=== PATIENT | female | born 1955 | race Caucasian/White ===

== ENCOUNTER → 2023-10-07 08:35 | Outpatient (REF) | payer MEDICARE, BC, SELFPAY | LOC: WDC 08:35 | PROVIDERS: ATTENDING PHYSICIAN Advanced Practice Midwife; FAMILY PHYSICIAN Family Medicine; REFERRING PHYSICIAN Internal Medicine Rheumatology | DX: M81.0 Age-related osteoporosis without current pathological fracture (principal); N63.10 Unspecified lump in the right breast, unspecified quadrant; N64.4 Mastodynia | CPT/HCPCS: 76642; 77062; 77066; 77080 ==

== ENCOUNTER → 2023-11-24 14:03 | Outpatient (REF) | payer MEDICARE, BC, SELFPAY | LOC: RAD 14:03 | PROVIDERS: ATTENDING PHYSICIAN Internal Medicine Cardiovascular Disease; FAMILY PHYSICIAN Family Medicine | DX: E78.5 Hyperlipidemia, unspecified (principal); M06.9 Rheumatoid arthritis, unspecified; Z82.49 Family history of ischemic heart disease and other diseases of the circulatory system | CPT/HCPCS: 71275; 74174; Q9967 ==

== ENCOUNTER → 2024-07-06 09:04 | Outpatient (REF) | payer MEDICARE, BC, SELFPAY | LOC: RAD 09:04 | PROVIDERS: ATTENDING PHYSICIAN Physician Assistant; FAMILY PHYSICIAN Family Medicine | DX: M25.561 Pain in right knee (principal); M25.571 Pain in right ankle and joints of right foot | CPT/HCPCS: 73564; 73610 ==

== ENCOUNTER → 2024-10-12 14:37 | Outpatient (REF) | payer MEDICARE, BC, SELFPAY | LOC: WDC 14:37 | PROVIDERS: ATTENDING PHYSICIAN Advanced Practice Midwife; FAMILY PHYSICIAN Family Medicine | DX: Z12.31 Encounter for screening mammogram for malignant neoplasm of breast (principal) | CPT/HCPCS: 77063; 77067 ==

== ENCOUNTER 2025-01-03 23:08 | Inpatient (IN) | payer MEDICARE, BC, SELFPAY ==
[2025-01-03] VITALS (9 sets, daily range): BP systolic 105–134; BP diastolic 61–106; BMI 36.0
[2025-01-03 14:41] LABS: % Basophils 0.2 % (0-2); % Eosinophils 0.4 % (0-6); % Immature Granulocytes 0.5 % (0-0.5); % Lymphocytes 8.5 % (20.5-51.1); % Monocytes 9.2 % (1.7-9.3); % Neutrophils 81.2 % (42.2-75.2); Absolute Eosinophils 0.1 10^3/uL (0-0.7); Absolute Immature Granulocytes 0.1 10^3/uL (0-0.05); Absolute Lymphocytes 1.3 10^3/uL (1.2-3.4); Absolute Monocytes 1.4 10^3/uL (0.1-0.6); Absolute Neutrophils 11.9 10^3/uL (1.4-6.5); Hematocrit 42.2 % (37.0-47.0); Mean Corp Hgb Conc. 33.2 g/dL (33.0-37.0); Mean Corpuscular Hgb 31.5 pg (27.0-31.0); Mean Platelet Volume 9.9 fL (7.4-10.4); Nucleated Red Blood Cells % 0 %; Platelet Count 298 10^3/uL (130-400); Red Blood Cell Count 4.44 10^6/uL (4.20-5.40); Red Cell Dist. Width 14.1 % (11.5-14.5); White Blood Cell Count 14.7 10^3/uL (4.8-10.8)
[2025-01-03 15:02] LABS: ALT (SGPT) 40 U/L (0-35); AST (SGOT) 36 U/L (14-36); Albumin 4.7 g/dl (3.5-5.0); Alkaline Phosphatase 85 U/L (38-126); Blood Urea Nitrogen 11 mg/dl (7-17); Calcium 9.2 mg/dl (8.4-10.2); Carbon Dioxide 28 mmol/L (22-30); Chloride 107 mmol/L (98-107); Glucose 112 mg/dl (70-99); Potassium 4.1 mmol/L (3.5-5.1); Sodium 141 mmol/L (135-145); Total Bilirubin 0.9 mg/dl (0.2-1.3); eGFR > 60.00
[2025-01-03 15:03] LABS: Urine Albumin 2+ (Neg - Trace); Urine Bilirubin Negative (Negative); Urine Character Clear (Clear); Urine Color Yellow; Urine Glucose Negative (Negative); Urine Ketone 2+ (Negative); Urine Leukocyte 1+ (Negative); Urine Nitrite Negative (Negative); Urine Occult Blood 2+ (Negative); Urine Urobilinogen Negative (Neg - 1+)
[2025-01-03 15:08] LABS: COVID-19 Antigen Negative (Negative)
[2025-01-03 15:18] LABS: Urine Bacteria Moderate (Negative)
[2025-01-03 15:19] LABS: Urine White Cell 40-50 /HPF (0-5)
[2025-01-03 15:20] LABS: Urine Urothelial Cell 0-2 /LPF (FEW)
[2025-01-03 15:35] LABS: Lipase 75 U/L (23-300)
--- NOTE | 2025-01-03 15:58 | ED.GENMED ---
History of Present Illness
General
Chief Complaint: Abdominal Symptoms
Source: patient
Exam Limitations: none
Time Seen by Provider: 01/03/25 15:41
History of Present Illness
History of Present Illness:
Patient started days ago with some diarrhea nausea vomiting. Followed by back pain. Followed by urinary symptoms. Followed by fever and chills. All of the symptoms have persisted the last 2 to 3 days. Last Tylenol late morning.
Past History
Past History
ED Past Medical History: Asthma, Hypercholesterolemia and Other (RA, Migraines, Sleep apnea)
ED Past Surgical History: None, Gynecological (right breast lumpectomy, D&C), Orthopedic (Right rotator cuff, Bilateral bunionectomy, Thoracic Laminectomy, Spinal stimulator) and Urological (Urtheral stents)
Social History
Tobacco: Former smoker
Alcohol: Occasional
Personal:
Living: with family
Employment: Retired
Review of Systems
Review of Systems
All Other Systems: Not applicable
Constitutional: Reports fever and chills
Respiratory: Reports no symptoms
Cardiac: Reports no symptoms
Phy Exam
Physical Exam
Physical Exam:
GENERAL: Alert and oriented. Appears mildly uncomfortable
EYE: Orbits normal.
NECK: Supple, no significant adenopathy.
ENT: Pharynx without erythema
CARDIAC: Regular rate and rhythm without any obvious murmurs.
LUNGS: Clear breath sounds,normal
ABDOMEN: Soft, mild nonlocalizing abdominal tenderness. No rebound or guarding no mass or hernia. Mild CVA tenderness more in the left
NEUROLOGICAL: Alert and oriented , grossly non-focal
SKIN: Warm and dry, no rash or lesion, no discoloration, skin intact.
MUSCULOSKELETAL: No edema,no deformity.Good color
PSYCH: Normal and appropriate interaction.
Sepsis
Sepsis Screening
Sepsis Assessment: Sepsis
Sepsis Screen
Sepsis Screen: Sepsis
Date: 01/03/25
Time: 19:00
Course
Orders/Labs/Results
Orders:
Orders
01/03/25 14:13
COVID-19 Antigen Urgent
Source: Nasal Swab
Complete Blood Count/With Diff Urgent
Comprehensive Metabolic Panel Urgent
Lipase Urgent
Urinalysis Reflex To Culture Urgent
Date Specimen was Collected: 01/03/25
Time Specimen was Collected: 13:47
Urine Microscopic Reflex Cult Urgent
Influenza A+B Rapid Molecular Urgent
PATRICIA Source: Nasal Swab
Specimen Description:
Date Specimen was Collected: 01/03/25
Time Specimen was Collected: 13:47
Urine Culture Urgent
PATRICIA Source: U
Specimen Description:
Date Specimen was Collected: 01/03/25
Time Specimen was Collected: 13:47
01/03/25 15:55
Cardiac Monitoring- Treatment ONCE
IV Insert/Care/Rem.- Treatment PRN
0.9% Sodium Chloride 1000 ml [Nss] 1,000 ml IV BOLUS
Acetaminophen [Tylenol] 1,000 mg PO NOW STA
Cefepime HCl [Maxipime] 2,000 mg IV NOW STA
Pulse Ox/cont/shift [RESP] Urgent
Quantity: 1
01/03/25 15:56
STOOL [C difficile Antigen & Toxins] Urgent
PATRICIA Source: Feces/Stool
Specimen Description:
Stool Culture Urgent
PATRICIA Source: Feces/Stool
Specimen Description:
01/03/25 15:57
CT Abd/Pel (IV only)-DH only Urgent
Comment:
Reason For Exam: Abdominal pain diarrhea/pyelonephritis
01/03/25 16:21
Lactic Acid Q4H
Comment: CANCEL 2nd LACTIC ACID IF 1st LACTIC ACID IS LESS THAN 2
Blood Culture Q30M
PATRICIA Source: Blood/Venous
Specimen Description:
01/03/25 16:25
Blood Culture Q30M
PATRICIA Source: Blood/Venous
Specimen Description:
01/03/25 16:50
Ketorolac [Toradol] 15 mg IV NOW STA
Ondansetron Injectable [Zofran] 4 mg IV NOW STA
01/03/25 16:52
CXR Port [CR Chest Portable - 1 View] Urgent
Comment:
Reason For Exam: fever/hypoxia
Reason Study Needs to be Portable: Patient Unstable
01/03/25 17:07
O2 Therapy [RESP] Stat
Titrate/Wean O2 to maintain O2 sat greater than (%): 94
01/03/25 18:11
Doxycycline Hyclate [Vibramycin] 100 mg 0.9% Sodium Chloride 250 ml [Nss] 250 ml IV NOW
01/03/25 20:00
Lactic Acid Q4H
Comment: CANCEL 2nd LACTIC ACID IF 1st LACTIC ACID IS LESS THAN 2
Abnormal Lab Results
01/03/25
14:13
WBC 14.7 H 10^3/uL
(4.8-10.8)
MCH 31.5 H pg
(27.0-31.0)
Abs Immat Gran (auto) 0.1 H 10^3/uL
(0-0.05)
Absolute Neuts (auto) 11.9 H 10^3/uL
(1.4-6.5)
Absolute Monos (auto) 1.4 H 10^3/uL
(0.1-0.6)
Neutrophils % 81.2 H %
(42.2-75.2)
Lymphocytes % 8.5 L %
(20.5-51.1)
Glucose 112 H mg/dl
(70-99)
ALT 40 H U/L
(0-35)
Urine Ketones 2+ A
(Negative)
Ur Occult Blood Reflex 2+ A
(Negative)
Leukocyte Esterase Rfl 1+ A
(Negative)
Urine RBC 3-6 A /HPF
(0-2)
Urine WBC (Reflex) 40-50 A /HPF
(0-5)
Urine Bacteria (Reflex) Moderate A
(Negative)
Urine Albumin (Reflex) 2+ A
(Neg - Trace)
01/03/25 14:13
01/03/25 14:13
Vital Signs
Initial and Last Documented VS:
Initial Vital Signs
Temp Pulse Resp BP Pulse Ox
99.6 F 105 18 132/93 95
01/03/25 13:42 01/03/25 13:42 01/03/25 13:42 01/03/25 13:42 01/03/25 13:42
Last Documented Vital Signs
Temp Pulse Resp BP Pulse Ox
99.6 F 99 17 134/106 94
01/03/25 13:42 01/03/25 17:00 01/03/25 17:00 01/03/25 18:19 01/03/25 18:18
MDM/Problems Addressed
Differential Diagnosis Includes:
Patient with fever white count immunosuppressed. Clinically and by labs looks like a pyelonephritis. Awaiting CT scan. Fluids antibiotics. Patient will require admission
*Pulse Oximetry
Patient hypoxic: no
*Critical Care Note
Total Time (30-74mins, 75-104mins- exclusive of procedures): 40
Data Reviewed
Review of Other/Old Records Reveals: Labs, Records and Testing
Update Note
Update Note:
No acute findings on CT. Copy of report given to patient for follow-up recheck multiple times. Feels better. Lactic acid within normal limits. Pyelonephritis/pneumonia.
ED Attending Note
-
Portions of this chart may have been created with voice recognition software.� Occasional wrong word or��sound alike� substitutions may have occurred due to the inherent limitations of voice recognition software.
Discharge Plan
Departure
Patient Disposition: Admit
Date of Disposition: 01/03/25
Time of Disposition: 17:54
Presentation/result/management discussed w/ accepting MD/DO: Hospitalist
Discharge Problem:
Pyelonephritis, Left lower lobe pneumonia, Immunocompromised
Prescriptions:
No Action
rabeprazole [AcipHex] 20 MG tablet,delayed release (DR/EC)
20 mg PO BID
Theragen Tablet
1 tab PO DAILY Qty: 0
montelukast 10 MG tablet
10 mg PO DAILY
ezetimibe 10 MG tablet
10 mg PO DAILY
Excedrin Tension Headache 500-65 mg Tablet
2 tab PO DAILYPRN PRN (Reason: migraine)
escitalopram oxalate [Lexapro] 10 mg Tablet
10 mg PO DAILY
methotrexate sodium 2.5 mg Tablet
20 mg PO MO
folic acid 1 mg Tablet
1 mg PO DAILY
gabapentin 600 mg Tablet
600 mg PO TID
acetaminophen [Tylenol] 325 mg Tablet
650 mg PO Q6HPRN PRN (Reason: mild pain)
rizatriptan [Maxalt] 10 mg Tablet
0 mg PO .COMPLEX
Rx Instructions:
take 1 tab at onset of headache; if no relief may repeat 1 tab after at least 2 hrs; max = 3 tabs/24 hr
fluticasone propion-salmeterol [Wixela Inhub] 500-50 mcg/dose Blister With Device
2 inh INHALATION R BID
ihnhtyrfih-asvuwlvfofdct-xihu 50-325-40 mg tablet
1 tab PO Q4HPRN PRN (Reason: migraines)
rutin 50 mg Tablet
50 mg PO DAILY
ascorbic acid (vitamin C) [Vitamin C] 500 mg Tablet
500 mg PO DAILY
infliximab [Remicade] 100 mg Recon Soln
0 mg IV MONTHLY
icosapent ethyl [Vascepa] 1 gram Capsule
2 g PO BID
turmeric 400 mg Capsule
400 mg PO DAILY
Nexletol 180 mg Tablet
180 mg PO DAILY
elderberry fruit 350 mg Capsule
1,250 mg PO BID
Referrals:
Dung Garcia, DO [Family Provider] -
Interventions
Interventions:
*Risk Screen - Suicide Last Done: 01/03/25 13:42
*General Assessment Last Done: 01/03/25 13:42
*Neglect/Abuse Screening Last Done: 01/03/25 16:40
*ED- Fall Risk Assessment Last Done: 01/03/25 16:23
*ED COVID-19 Vaccine History Last Done: 01/03/25 16:23
HB-Kfjwec-Dqqxvoekhr Assessment Last Done: 01/03/25 16:23
Discharge Date and Time
Print Language: LITHUANIAN
[2025-01-03] MEDS: TYLENOL 1000 MG PO (16:05)
[2025-01-03] MEDS: MAXIPIME 2000 MG IV (16:22)
[2025-01-03] MEDS: NSS 1000 IV (16:22)
[2025-01-03] MEDS: ZOFRAN 4 MG IV (16:55)
[2025-01-03] MEDS: TORADOL 15 MG IV (16:55)
[2025-01-03 16:58] LABS: Lactic Acid 1.1 mmol/L (0.7-2.0)
[2025-01-03] MEDS: VIBRAMYCIN 260 MG IV (18:46)
--- NOTE | 2025-01-03 18:46 | HPS.HSE ---
Family Physician
-
Family Physician: Dung Garcia
Chief Complaint
-
nausea vomiting followed by back pain.
History of Present Illness
HPI
69F HX Asthma, hypercholesterolemia , RA, Migraines, Sleep apnea seen at ER:
- pw some diarrhea nausea vomiting followed by back pain.
- POS frequency and dysuria for a coupe of days plus fever and chills.
- Lt renal angle tenderness
- Denied cough and sputum production
- All of the symptoms have persisted the last 2 to 3 days.
- Last Tylenol late morning.
Medical History
Past Medical History
Past Medical History: Reports Asthma, Cancer (cervical-conization), GERD, Hypercholesterolemia and Other (RA on Remicade and MTX, Migraines, Sleep apnea)
Past Surgical History: Reports Gynocological (Cervical conization), Orthopedic (L4-5 Discectomy, right rotator cuff repair, left hand carpel tunnel release, bunionectromy) and Other (Right breast lumpectomy, right eye cataract, right ganglion cyst
removal)
Social History
Tobacco: Former Smoker
Alcohol: Occasional
Personal:
Living: With Family
Employment: Retired
Family History
Family History: Not pertinent
Allergies / Home Medications
Allergies reflects when Allergies were last updated in [facility].
Home Medications with original date entered in [facility]
Allergy/Medication List:
Allergies
Allergy/AdvReac Type Severity Reaction Status Date / Time
aspirin Allergy GI bleed Verified 06/16/22 19:12
Beta-Blockers Allergy Asthma, Verified 06/16/22 19:12
(Beta-Adrenergic Bloc HYPOTENSION
codeine [Codeine] Allergy hypotension Verified 06/16/22 19:12
esomeprazole magnesium Allergy hives/rash Verified 06/16/22 19:12
[From Nexium]
famotidine [From Pepcid] Allergy hives/rash Verified 06/16/22 19:12
hydromorphone HCl Allergy itching/ifrah Verified 06/16/22 19:12
[From Dilaudid] minda
ibuprofen Allergy ITCHING, Verified 06/16/22 19:12
MIGRAINE
levetiracetam [From Keppra] Allergy Rash Verified 06/16/22 19:12
naproxen Allergy ITCHING, Verified 06/16/22 19:12
MIGRAINE
NSAIDS (Non-Steroidal Allergy Itching, Verified 06/16/22 19:12
Anti-Inflamma migraine
H/A
Jijoscd-CPG-AkO Reductase Allergy severe Verified 06/16/22 19:12
Inhibitor muscle pain
[Xdlhlye-Bbe-Ghw Reductase
Inhibitor]
theophylline anhydrous Allergy HIVES, Verified 06/16/22 19:12
[From Juanito-Dur] RASH,
respiratory
distress
statin Allergy Unknown Uncoded 06/16/22 19:12
theodur Allergy Hives, Uncoded 06/16/22 19:12
rash,
respiratory
distress
Home Medications
Nifedipine 40 mg PO QHS for migraine prophylaxis
MTX 2.5 mg (8 tabs) on Mondays
Folic Acid 1 tab daily
Remicade every 6 weeks, due this week.
fluticasone 250 mcg-salmeterol 50 mcg/dose blistr powdr for inhalation (Advair Diskus) 1 puff inhalation BID 11/22/11
rizatriptan 10 mg tablet (Maxalt) 20 mg PO PRN PRN migraines 11/22/11
albuterol sulfate 90 mcg/actuation aerosol inhaler 2 puff inhalation PRN PRN asthma 04/21/14
Review of Systems
-
Constitutional: Reports No Symptoms
EENT: Reports No Symptoms
Respiratory: Reports No Symptoms
Cardiac: Reports No Symptoms
Abdomen/GI: Reports See HPI, Nausea, Vomiting and Diarrhea
: Reports No Symptoms
Musculoskeletal: Reports See HPI
Skin: Reports No Symptoms
Neurological: Reports No Symptoms
Endocrine: Reports No Symptoms
Hematologic/Lymphatic: Reports No Symptoms
Psych: Reports No Symptoms
Physical Exam
Vital Signs
Vital Signs
Temp Pulse Resp BP Pulse Ox
99.6 F 99 17 134/106 94
01/03/25 13:42 01/03/25 17:00 01/03/25 17:00 01/03/25 18:19 01/03/25 18:18
Physical Exam
General: Well Developed, Well Nourished, No Apparent Distress and Obese (BMI 36 )
HEENT: NormoCephalic, Moist mucous membranes and Atraumatic
Respiratory: Clear
Cardiac: S1/S2 and Regular Rhythm; No Murmur or Rub
GI: Soft, Non Tender, Non Distended and Normal Bowel Sounds; No Organomegaly
Rectal: Deferred by Provider
Genito-urinary: Costovertebral angle tend (Lt CVA tenderness )
Musculoskeletal: No Clubbing, No Cyanosis and No Edema
Skin: No Rash
Neuro: Nonfocal/grossly intact
Psych: Calm
Laboratory Results
-
01/03/25 14:13
01/03/25 14:13
Laboratory Results
Lactic Acid 1.1 mmol/L (0.7-2.0) 01/03/25 16:21
Total Bilirubin 0.9 mg/dl (0.2-1.3) 01/03/25 14:13
AST 36 U/L (14-36) 01/03/25 14:13
ALT 40 U/L (0-35) H 01/03/25 14:13
Alkaline Phosphatase 85 U/L (38-126) 01/03/25 14:13
Lipase 75 U/L (23-300) 01/03/25 14:13
Data Reviewed
-
Diagnostic Radiology: Report Reviewed by me
CT Scan: Report Reviewed by me
Lab Data: Labs Reviewed by me
Old Records: Reviewed
Impression/Plan
-
Vital Signs
Temp Pulse Resp BP Pulse Ox
99.6 F 99 17 134/106 94
01/03/25 13:42 01/03/25 17:00 01/03/25 17:00 01/03/25 18:19 01/03/25 18:18
Abnormal Lab Results
01/03/25
14:13
WBC 14.7 H
MCH 31.5 H
Abs Immat Gran (auto) 0.1 H
Absolute Neuts (auto) 11.9 H
Absolute Monos (auto) 1.4 H
Neutrophils % 81.2 H
Lymphocytes % 8.5 L
Glucose 112 H
ALT 40 H
Urine Ketones 2+ A
Ur Occult Blood Reflex 2+ A
Leukocyte Esterase Rfl 1+ A
Urine RBC 3-6 A
Urine WBC (Reflex) 40-50 A
Urine Bacteria (Reflex) Moderate A
Urine Albumin (Reflex) 2+ A
UCx sent
BCx sent
CXR
Small left lower lobe infiltrate.
CT Abd/Pel (IV only)-DH only
- The colon is collapsed which limits assessment of intestinal wall thickening.
There is the suggestion of mild colonic wall thickening involving the ascending colon, transverse colon, and descending colon. Cannot exclude mild nonspecific colitis.
No associated significant pericolonic inflammatory soft tissue thickening.
No pneumatosis.
- There is a small amount of fluid within nondistended loops of small bowel.
- Small amount of liquid feces in the cecum.
- No Obstructive uropathy.
- Fatty infiltration of liver. Stable hepatic cysts.
- Stable small pancreatic low-attenuation/cystic structure in the region of the pancreatic body measuring 10 mm.
Recommend follow-up in 2 years.
Last hospitalist admission: 06/18/2022 - 06/20/2022
DC Dxs
1. Acute hypoxic respiratory insufficiency No O2 needs at home.
2. Acute asthma exacerbation
3. History of rheumatoid arthritis on Remicade and methotrexate plus folic acid in immunosuppressed patient.
4. History of migraines on nifedipine.
5. Gastroesophageal reflux disease on PPI.
ASSESSMENT & PLAN
Pending Rx reconciliation
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
- Hold MTX for now with acute infective process
Symptomatic UTI complicated with clinical Acute Lt PN
Lt CVA tenderness
Significant pyuria
No Obstructive uropathy.
- FU BCx and UCx
- Empiric IV CFP
- IV NS
- Tylenol PRN
- IV Toradol PRN
Small left lower lobe infiltrate
No clinical PNA
- Hold off PO Doxy for now
HX RA on Remicade and MTX (with folic acid)
- c/w [employer] Gabapentin
- Hold MTX while acute infective process
HX Asthma
- has HFA and Advair
- she is followed OP by [employer] Dr. Reji Aldana (f/u in 4-6 weeks)
HX Migraines
- on Maxalt
HX GERD on PPI
Depression
- stable on Escitalopram
HLD
- on Ezetimibe
Class II Obesity
BMI 36
JASIEL
- not use CPAP at home
DVT ppx: LMWH
Code: Full
IP MS
[2025-01-04] MEDS: MAXIPIME 1000 MG IV ×3 (00:36→16:37)
[2025-01-04] MEDS: STERILE WATER FOR INJECTION 10 ML IV ×3 (00:42→16:36)
[2025-01-04] MEDS: NSS IV (00:50)
[2025-01-04] MEDS: MAXALT MLT (ORALLY DISINTEGRATING) 10 MG PO ×3 (04:58→21:11)
[2025-01-04 05:03] VITALS: BP 130/64
[2025-01-04] MEDS: NSS 1000 IV ×2 (05:08→20:27)
[2025-01-04] MEDS: ZOFRAN 4 MG IV (05:12)
[2025-01-04 06:22] LABS: Hematocrit 38.1 % (37.0-47.0); Hemoglobin 12.7 g/dL (12.0-16.0); Mean Corp Hgb Conc. 33.3 g/dL (33.0-37.0); Mean Corpuscular Hgb 31.4 pg (27.0-31.0); Mean Corpuscular Volume 94.3 fL (81.0-99.0); Mean Platelet Volume 10.3 fL (7.4-10.4); Platelet Count 274 10^3/uL (130-400); Red Blood Cell Count 4.04 10^6/uL (4.20-5.40); Red Cell Dist. Width 14.1 % (11.5-14.5)
[2025-01-04 06:48] LABS: Blood Urea Nitrogen 14 mg/dl (7-17); Calcium 8.9 mg/dl (8.4-10.2); Carbon Dioxide 25 mmol/L (22-30); Chloride 112 mmol/L (98-107); Estimated Creatinine Clearance 82 ml/min; Glucose 94 mg/dl (70-99); Potassium 4.2 mmol/L (3.5-5.1); Sodium 142 mmol/L (135-145); eGFR > 60.00
[2025-01-04 07:19] VITALS: BP 126/86
[2025-01-04] MEDS: TYLENOL 650 MG PO ×2 (08:03→16:43)
[2025-01-04] MEDS: NEURONTIN 600 MG PO ×3 (08:17→22:20)
[2025-01-04] MEDS: SINGULAIR 10 MG PO (08:18)
[2025-01-04] MEDS: ZETIA 10 MG PO (08:19)
[2025-01-04] MEDS: LEXAPRO 10 MG PO (08:19)
--- NOTE | 2025-01-04 08:19 | W.PN.HOSP.TC ---
Today's Communication/Plan
-
see plan
Assessment / Plan
Assessment / Plan
Gen: NAD, AAOx3.
Eyes: EOMI, PERRLA, no scleral icterus.
Neck: supple.
CV: RRR, +S1/S2, no m/r/g.
Resp: CTAB, no rales, wheezes, or rhonchi.
Abd: +BS, soft, mild, diffuse, TTP, ND
Skin: No rashes.
Neuro: CN 2-12 intact, non-focal.
Psych: Normal mood and affect.
CXR: Small left lower lobe infiltrate.
CT A/P (IV only): The colon is collapsed which limits assessment of intestinal wall thickening. There is the suggestion of mild colonic wall thickening involving the ascending colon, transverse colon, and descending colon. Cannot exclude mild
nonspecific colitis. No associated significant pericolonic inflammatory soft tissue thickening. No pneumatosis. There is a small amount of fluid within nondistended loops of small bowel. Small amount of liquid feces in the cecum. No Obstructive
uropathy. Fatty infiltration of liver. Stable hepatic cysts. Stable small pancreatic low-attenuation/cystic structure in the region of the pancreatic body measuring 10 mm. Recommend follow-up in 2 years.
Sepsis (POA) due to symptomatic UTI:
-complicated with clinical acute L pyelonephritis (L CVA TTP)
-immunosuppressed host being on Remicade and methotrexate for RA (holding MTX)
-cont Cefepime
-cont IVFs
-follow UCx/BCxs
-c/s ID
Other problems:
Small left lower lobe infiltrate: No clinical PNA
RA: on Remicade and MTX (with folic acid), holding MTX with UTI, cont Neurontin
Asthma: Cont Advair/Singulair
Migraines: Maxalt PRN
GERD: cont PPI
Depression: cont Lexapro
HLD: cont Zetiz
Obesity due to excess calories
JASIEL, does not use CPAP at home
FULL/Lovenox
Anticipated Discharge: 24 - 48 hours
Subjective/Interval History
-
Date of Service: January 04, 2025
c/o nausea and L flank sharp pain
Objective Data
-
Labs:
Laboratory Results
01/04/25
05:08
WBC 12.0 H
Hgb 12.7
Hct 38.1
Plt Count 274
Sodium 142
Potassium 4.2
Chloride 112 H
Carbon Dioxide 25
BUN 14
Creatinine 0.7
Glucose 94
Calcium 8.9
Vital Signs:
Vital Signs
Temp Pulse Resp BP Pulse Ox
99.1 F 93 16 126/86 94
01/04/25 07:19 01/04/25 07:19 01/04/25 07:19 01/04/25 07:19 01/03/25 23:45
[2025-01-04] MEDS: FOLVITE 1 MG PO (08:20)
[2025-01-04] MEDS: ADVAIR HFA 230/21 MCG INHALER INH ×2 (08:30→08:31)
--- NOTE | 2025-01-04 08:45 | EDRN ---
Serafin Benito in to see pt.
[2025-01-04 11:37] VITALS: BP 126/71
[2025-01-04] MEDS: TORADOL 10 MG IV ×2 (13:00→20:42)
--- NOTE | 2025-01-04 16:29 | CON.ID ---
Consultation
-
Date/Time Consultation Requested: January 04, 2025 0842
Date/Time Consultation Performed: January 04, 2025 1630
Requesting Provider: Dr. Hudson Benito
Performing Provider: Dr. Joanie Arias
Reason for Consultation: Left pyelonephritis
Chief Complaint / Past History
Chief Complaint
Left flank pain and burning with urination
History of Present Illness
69-year-old female with history of rheumatoid arthritis on methotrexate and Remicade who presented to the hospital January 03 due to malaise, left back pain. She reports that she for started with nausea vomiting and then explosive diarrhea. After the
incident she then started with dysuria, urinary frequency and left flank pain. Positive chills and subjective fever. In the ER white count 14.7. Urine analysis 1+ leukocyte esterase, 40-50 white blood cells, urine culture E. coli. CT of the
abdomen pelvis no obstructive uropathy; there is suggestive of mild colonic wall thickening ascending, transverse and descending colon. She is currently on cefepime. The diarrhea has resolved. No history of frequent UTI.
Past History
Additional Past Medical History:
Rheumatoid arthritis on MTX and Remicade
Migraine headaches
Sleep apnea
HLD
Asthma
Nephrolithiasis
L4-5 discectomy
Right rotator cuff repair
Bunionectomy
Right breast lumpectomy
Cervical conization
Allergy History:
aspirin Allergy (Verified 01/03/25 13:42)
GI bleed
Beta-Blockers (Beta-Adrenergic Bloc Allergy (Verified 01/03/25 13:42)
Asthma, HYPOTENSION
codeine [Codeine] Allergy (Verified 01/03/25 13:42)
hypotension
esomeprazole magnesium [From Nexium] Allergy (Verified 01/03/25 13:42)
hives/rash
famotidine [From Pepcid] Allergy (Verified 01/03/25 13:42)
hives/rash
hydromorphone HCl [From Dilaudid] Allergy (Verified 01/03/25 13:42)
itching/migraine
ibuprofen Allergy (Verified 01/03/25 13:42)
ITCHING, MIGRAINE
levetiracetam [From Keppra] Allergy (Verified 01/03/25 13:42)
Rash
naproxen Allergy (Verified 01/03/25 13:42)
ITCHING, MIGRAINE
NSAIDS (Non-Steroidal Anti-Inflamma Allergy (Verified 01/03/25 13:42)
Itching, migraine H/A
Hkjqudj-YFR-WvL Reductase Inhibitor [Newptko-Wcy-Hru Reductase Inhibitor] Allergy (Verified 01/03/25 13:42)
severe muscle pain
theophylline anhydrous [From Juanito-Dur] Allergy (Verified 01/03/25 13:42)
HIVES, RASH, respiratory distress
EYE DROPS WITH PRESERVATIVES Allergy (Uncoded 01/03/25 13:42)
Unknown
Medications Reviewed: Yes
Current Antibiotics:
Cefepime 1g IV q8
Social History
Tobacco: Non-Smoker
Alcohol: None
Drug: None
Personal:
Living: With Family
Family History
Family History: Not Pertinent
Review of Systems
Review of Systems
General: Fever, Chills and Change in Appetite
HEENT: Negative Sinus Problems or Headache
Cardiovascular: Negative Chest Pain or Dyspnea
Respiratory: Negative Dyspnea or Cough
Genital / Urological: Negative Dysuria or Flank Pain
Endocrine: Weakness
Neurological: Negative Dizziness
All systems: All other systems were reviewed and were negative
Vital Signs
Temp Pulse Resp BP Pulse Ox
99.1 F 94 16 126/71 94
01/04/25 07:19 01/04/25 11:37 01/04/25 11:37 01/04/25 11:37 01/04/25 11:37
Physical Exam
Physical Exam
Constitutional: No Acute Distress and Comfortable
Eyes: No Conjunctival Hemorrhage and Sclera Anicteric
Cardiovascular: Regular Rate and S1/S2
Pulmonary: Clear
Gastrointestinal: Soft, Non Tender, Non Distended and Normal Bowel Sounds
Genito-Urinary: CVA Tenderness (left); Negative Suprapubic Tenderness
Neurological: AO x 3
Lab / Diagnostic Study Results
01/04/25 05:08
01/04/25 05:08
Abs Immat Gran (auto) 0.1 10^3/uL (0-0.05) H 01/03/25 14:13
Absolute Neuts (auto) 11.9 10^3/uL (1.4-6.5) H 01/03/25 14:13
Absolute Lymphs (auto) 1.3 10^3/uL (1.2-3.4) 01/03/25 14:13
Absolute Monos (auto) 1.4 10^3/uL (0.1-0.6) H 01/03/25 14:13
Absolute Basos (auto) 0.0 10^3/uL (0-0.2) 01/03/25 14:13
Immature Gran % 0.5 % (0-0.5) 01/03/25 14:13
Neutrophils % 81.2 % (42.2-75.2) H 01/03/25 14:13
Lymphocytes % 8.5 % (20.5-51.1) L 01/03/25 14:13
Monocytes % 9.2 % (1.7-9.3) 01/03/25 14:13
Eosinophils % 0.4 % (0-6) 01/03/25 14:13
Basophils % 0.2 % (0-2) 01/03/25 14:13
Lactic Acid Cancelled 01/03/25 20:00
Ur Squamous Epith Cells 3-5 /LPF (Few) 01/03/25 14:13
Microbiology Results
Micro:
01/03/25 14:13 Urine Culture - Preliminary
Urine Escherichia coli
01/04/25 05:01 Salmonella/Shigella Culture - Pending
Feces/Stool Campylobacter Culture - Pending
Shiga Toxin Test - Pending
01/03/25 16:25 Blood Culture - Pending
Blood/Venous
01/03/25 16:21 Blood Culture - Pending
Blood/Venous
01/03/25 14:13 Influenza Types A & B (OPAL) - Final
Nasal Swab Negative for Influenza A & B, NAAT
Negative results must be combined with clinical observations
and patient history.
Nucleic Acid Amplification test (NAAT)performed on the
[employer] platform.
01/03/15 CT a/p: The colon is collapsed which limits assessment of intestinal wall thickening. There is the suggestion of mild colonic wall thickening involving the ascending colon, transverse colon, and descending colon. Cannot exclude mild
nonspecific colitis. No associated significant pericolonic inflammatory soft tissue thickening. No pneumatosis. There is a small amount of fluid within nondistended loops of small bowel. Small amount of liquid feces in the cecum. No Obstructive
uropathy. Fatty infiltration of liver. Stable hepatic cysts. Stable small pancreatic low-attenuation/cystic structure in the region of the pancreatic body measuring 10 mm. Recommend follow-up in 2 years.
01/03/25 CXR: Small left lower lobe infiltrate.
Assessment / Plan
# Complicated UTI
# Leukocytosis
# Recent gastroenteritis - resolved
- Ucx E. coli
- Follow blood cx's
- Narrow cefepime to ceftriaxone.
- Follow temps/wbc
--- NOTE | 2025-01-04 16:46 | EDRN ---
Pt medicated for headache 02/01 at this time w/ [address]
[2025-01-04 17:38] VITALS: BP 129/66
[2025-01-04 17:43] VITALS: BMI 34.9
[2025-01-04] MEDS: ADVAIR HFA 230/21 MCG INHALER 2 PUFF INH (19:45)
[2025-01-04] MEDS: STERILE WATER FOR INJECTION 20 ML IV (20:21)
[2025-01-04] MEDS: ROCEPHIN 2000 MG IV (20:21)
[2025-01-04 23:14] VITALS: BP 117/74
[2025-01-05 05:12] VITALS: BMI 35.4
[2025-01-05] MEDS: MAXALT MLT (ORALLY DISINTEGRATING) 10 MG PO (05:55)
[2025-01-05] MEDS: LEXAPRO 10 MG PO (07:24)
[2025-01-05] MEDS: NEURONTIN 600 MG PO ×3 (07:24→21:26)
[2025-01-05] MEDS: SINGULAIR 10 MG PO (07:24)
[2025-01-05] MEDS: FOLVITE 1 MG PO (07:24)
[2025-01-05] MEDS: ZETIA 10 MG PO (07:24)
[2025-01-05] MEDS: ADVAIR HFA 230/21 MCG INHALER 2 PUFF INH ×2 (07:56→19:33)
[2025-01-05 08:01] VITALS: BP 143/89
--- NOTE | 2025-01-05 12:26 | W.PN.HOSP.TC ---
Today's Communication/Plan
-
see plan
Assessment / Plan
Assessment / Plan
Gen: NAD, AAOx3.
Eyes: EOMI, PERRLA, no scleral icterus.
Neck: supple.
CV: remains RRR, +S1/S2, no m/r/g.
Resp: remains CTAB, no rales, wheezes, or rhonchi.
Abd: +BS, soft, NT to light palpation, ND
Skin: No rashes.
Neuro: CN 2-12 intact, non-focal.
Psych: Normal mood and affect.
01/03/25 14:13 Urine Urine Culture - Final
Escherichia coli
01/03/25 16:21 Blood/Venous Blood Culture - Preliminary
No Growth in 24 hours- Final report to follow
01/03/25 16:25 Blood/Venous Blood Culture - Preliminary
No Growth in 24 hours- Final report to follow
01/03/25 14:13 Nasal Swab Influenza Types A & B (OPAL) - Final
Negative for Influenza A & B, NAAT
Negative results must be combined with clinical observations
and patient history.
Nucleic Acid Amplification test (NAAT)performed on the
[employer] NOW platform.
CXR: Small left lower lobe infiltrate.
CT A/P (IV only): The colon is collapsed which limits assessment of intestinal wall thickening. There is the suggestion of mild colonic wall thickening involving the ascending colon, transverse colon, and descending colon. Cannot exclude mild
nonspecific colitis. No associated significant pericolonic inflammatory soft tissue thickening. No pneumatosis. There is a small amount of fluid within nondistended loops of small bowel. Small amount of liquid feces in the cecum. No Obstructive
uropathy. Fatty infiltration of liver. Stable hepatic cysts. Stable small pancreatic low-attenuation/cystic structure in the region of the pancreatic body measuring 10 mm. Recommend follow-up in 2 years.
Sepsis (POA) due to symptomatic UTI:
-complicated with clinical acute L pyelonephritis (L CVA TTP)
-immunosuppressed host being on Remicade and methotrexate for RA (holding MTX)
-cont Rocephin as per ID
-s/p IVFs
-UCx with pansensitive E coli
-follow BCxs (NGTD)
Other problems:
Small left lower lobe infiltrate: No clinical PNA
RA: on Remicade and MTX (with folic acid), holding MTX with UTI, cont Neurontin
Asthma: Cont Advair/Singulair
Migraines: Maxalt PRN
GERD: cont PPI
Depression: cont Lexapro
HLD: cont Zetia
Obesity due to excess calories
JASIEL, does not use CPAP at home
FULL/Lovenox
Anticipated Discharge: Within 24 hours
Subjective/Interval History
-
Date of Service: January 05, 2025
Pt states she feels improvement since yesterday.
Objective Data
-
Vital Signs:
Vital Signs
Temp Pulse Resp BP Pulse Ox
97.8 F 88 16 143/89 94
01/05/25 08:01 01/05/25 08:01 01/05/25 08:01 01/05/25 08:01 01/05/25 08:01
I&O
01/04/25 01/05/25 01/06/25
06:59 06:59 06:59
Intake Total 840 / 840
Balance 840 / 840
--- NOTE | 2025-01-05 13:11 | CM ---
Initial assessment completed. Admitted for nausea vomiting followed by back pain.
Patient resides w/ spouse in a 2STH- 1 step to enter. Independent w/ ambulating, no device required. Independent w/ ADLs. Patient has grab bar in the home. No SNF/HC hx reported. Multiple episodes of OP therapy mainly for her wrist.
Address, point of contact and insurance verified
PCP: Dung Garcia
Pharmacy: [facility]. [facility] for mail orders
Plan: Home, no needs
--- NOTE | 2025-01-05 13:37 | W.PN.ID1 ---
Date of Service
Date of Service: January 05, 2025
Today's Communication
Continue ceftriaxone
Assessment / Plan
# Complicated UTI
# Leukocytosis-trending down
# Recent gastroenteritis - resolved
- Ucx E. coli
- blood cx's neg
- Continue ceftriaxone until clinically improve, then stepdown to po abx.
- Follow temps/wbc
# Additional Past Medical History:
Rheumatoid arthritis on MTX and Remicade
Migraine headaches
Sleep apnea
HLD
Asthma
Nephrolithiasis
L4-5 discectomy
Right rotator cuff repair
Bunionectomy
Right breast lumpectomy
Cervical conization
Chief Complaint
-: UTI
Subjective / Review of Systems
c/o migraine CHIN.
Dysuria and flank pain still present but improved.
Vital Signs / Physical Exam
Vital Signs
Vital Signs
Temp Pulse Resp BP Pulse Ox
97.8 F 88 16 143/89 94
01/05/25 08:01 01/05/25 08:01 01/05/25 08:01 01/05/25 08:01 01/05/25 08:01
Physical Exam
Constitutional: Non-toxic
Cardiovascular: Regular Rate and S1/S2
Pulmonary: Clear
Gastrointestinal: Soft, Non Tender and Non Distended
Genito-Urinary: CVA Tenderness (left)
Extremities: Negative Edema
Neurological: AO x 3
Objective Data
Lab Data
Lab Results
01/04/25 05:08
01/04/25 05:08
Estimated Creat Clear 82 ml/min 01/04/25 05:08
Lactic Acid Cancelled 01/03/25 20:00
Total Bilirubin 0.9 mg/dl (0.2-1.3) 01/03/25 14:13
AST 36 U/L (14-36) 01/03/25 14:13
ALT 40 U/L (0-35) H 01/03/25 14:13
Alkaline Phosphatase 85 U/L (38-126) 01/03/25 14:13
Most recent labs reviewed.
Micro Results:
01/04/25 05:01 Salmonella/Shigella Culture - Preliminary
Feces/Stool Culture in Progress
Campylobacter Culture - Preliminary
Culture in Progress
Shiga Toxin Test - Pending
01/03/25 14:13 Urine Culture - Final
Urine Escherichia coli
01/03/25 16:21 Blood Culture - Preliminary
Blood/Venous No Growth in 24 hours- Final report to follow
01/03/25 16:25 Blood Culture - Preliminary
Blood/Venous No Growth in 24 hours- Final report to follow
01/03/25 14:13 Influenza Types A & B (OPAL) - Final
Nasal Swab Negative for Influenza A & B, NAAT
Negative results must be combined with clinical observations
and patient history.
Nucleic Acid Amplification test (NAAT)performed on the
[employer] platform.
01/03/15 CT a/p: The colon is collapsed which limits assessment of intestinal wall thickening. There is the suggestion of mild colonic wall thickening involving the ascending colon, transverse colon, and descending colon. Cannot exclude mild
nonspecific colitis. No associated significant pericolonic inflammatory soft tissue thickening. No pneumatosis. There is a small amount of fluid within nondistended loops of small bowel. Small amount of liquid feces in the cecum. No Obstructive
uropathy. Fatty infiltration of liver. Stable hepatic cysts. Stable small pancreatic low-attenuation/cystic structure in the region of the pancreatic body measuring 10 mm. Recommend follow-up in 2 years.
01/03/25 CXR: Small left lower lobe infiltrate.
[2025-01-05 15:51] VITALS: BP 103/73
[2025-01-05] MEDS: ROCEPHIN 2000 MG IV (19:59)
[2025-01-05] MEDS: STERILE WATER FOR INJECTION 20 ML IV (19:59)
[2025-01-05 23:04] VITALS: BP 130/71
[2025-01-06 05:42] VITALS: BMI 35.4
[2025-01-06 07:20] VITALS: BP 126/85
[2025-01-06] MEDS: ADVAIR HFA 230/21 MCG INHALER 2 PUFF INH (07:29)
[2025-01-06 08:06] LABS: Hematocrit 35.5 % (37.0-47.0); Hemoglobin 11.6 g/dL (12.0-16.0); Mean Corp Hgb Conc. 32.7 g/dL (33.0-37.0); Mean Corpuscular Hgb 30.8 pg (27.0-31.0); Mean Corpuscular Volume 94.2 fL (81.0-99.0); Mean Platelet Volume 10.1 fL (7.4-10.4); Platelet Count 308 10^3/uL (130-400); Red Blood Cell Count 3.77 10^6/uL (4.20-5.40); Red Cell Dist. Width 14.1 % (11.5-14.5); White Blood Cell Count 5.7 10^3/uL (4.8-10.8)
[2025-01-06] MEDS: ZETIA 10 MG PO (08:13)
[2025-01-06] MEDS: NEURONTIN 600 MG PO (08:13)
[2025-01-06] MEDS: SINGULAIR 10 MG PO (08:13)
[2025-01-06] MEDS: FOLVITE 1 MG PO (08:13)
[2025-01-06] MEDS: LEXAPRO 10 MG PO (08:13)
[2025-01-06 08:41] LABS: Blood Urea Nitrogen 11 mg/dl (7-17); Calcium 8.7 mg/dl (8.4-10.2); Carbon Dioxide 27 mmol/L (22-30); Chloride 109 mmol/L (98-107); Estimated Creatinine Clearance 95 ml/min; Glucose 105 mg/dl (70-99); Potassium 3.8 mmol/L (3.5-5.1); Sodium 143 mmol/L (135-145); eGFR > 60.00
--- NOTE | 2025-01-06 10:00 | W.PN.ID1 ---
Date of Service
Date of Service: January 06, 2025
Today's Communication
- Transition ceftriaxone (d4) to cephalexin 500mg po qid through 01/16/25.
Assessment / Plan
# Complicated UTI/left pyelo
# Leukocytosis-resolved
# Recent gastroenteritis - resolved
- Ucx E. coli
- blood cx's neg
- Urine sxs resolved.
- Transition ceftriaxone (d4) to cephalexin 500mg po qid through 01/16/25.
# Additional Past Medical History:
Rheumatoid arthritis on MTX and Remicade
Migraine headaches
Sleep apnea
HLD
Asthma
Nephrolithiasis
L4-5 discectomy
Right rotator cuff repair
Bunionectomy
Right breast lumpectomy
Cervical conization
Chief Complaint
-: UTI
Subjective / Review of Systems
No further dysuria and flank pain. Migraines better.
Vital Signs / Physical Exam
Vital Signs
Vital Signs
Temp Pulse Resp BP Pulse Ox
98.0 F 78 18 126/85 95
01/06/25 07:20 01/06/25 07:31 01/06/25 07:31 01/06/25 07:20 01/06/25 07:31
Physical Exam
Constitutional: No Acute Distress and Comfortable
Cardiovascular: Regular Rate and S1/S2
Pulmonary: Clear
Gastrointestinal: Soft, Non Tender, Non Distended and Normal Bowel Sounds
Genito-Urinary: Negative CVA Tenderness
Neurological: AO x 3
Objective Data
Lab Data
Lab Results
01/06/25 07:16
01/06/25 07:16
Estimated Creat Clear 95 ml/min 01/06/25 07:16
Lactic Acid Cancelled 01/03/25 20:00
Total Bilirubin 0.9 mg/dl (0.2-1.3) 01/03/25 14:13
AST 36 U/L (14-36) 01/03/25 14:13
ALT 40 U/L (0-35) H 01/03/25 14:13
Alkaline Phosphatase 85 U/L (38-126) 01/03/25 14:13
Most recent labs reviewed.
Micro Results:
01/04/25 05:01 Salmonella/Shigella Culture - Final
Feces/Stool No Salmonella, Shigella, Aeromonas or Plesiomonas species
isolated.
Campylobacter Culture - Final
No Campylobacter species isolated.
Shiga Toxin Test - Final
No E. coli Shiga Toxin 1 or 2 detected.
01/03/25 16:21 Blood Culture - Preliminary
Blood/Venous No Growth in 48 hours- Final report to follow
01/03/25 16:25 Blood Culture - Preliminary
Blood/Venous No Growth in 48 hours- Final report to follow
01/03/25 14:13 Urine Culture - Final
Urine Escherichia coli
01/03/25 14:13 Influenza Types A & B (OPAL) - Final
Nasal Swab Negative for Influenza A & B, NAAT
Negative results must be combined with clinical observations
and patient history.
Nucleic Acid Amplification test (NAAT)performed on the
[employer] platform.
01/03/15 CT a/p: The colon is collapsed which limits assessment of intestinal wall thickening. There is the suggestion of mild colonic wall thickening involving the ascending colon, transverse colon, and descending colon. Cannot exclude mild
nonspecific colitis. No associated significant pericolonic inflammatory soft tissue thickening. No pneumatosis. There is a small amount of fluid within nondistended loops of small bowel. Small amount of liquid feces in the cecum. No Obstructive
uropathy. Fatty infiltration of liver. Stable hepatic cysts. Stable small pancreatic low-attenuation/cystic structure in the region of the pancreatic body measuring 10 mm. Recommend follow-up in 2 years.
01/03/25 CXR: Small left lower lobe infiltrate.
Care Review
Plan reviewed with: Physician (Dr. Benito)
--- NOTE | 2025-01-06 11:23 | W.PN.HOSP.TC ---
Today's Communication/Plan
-
d/c
Assessment / Plan
Assessment / Plan
Gen: NAD, AAOx3.
Eyes: EOMI, PERRLA, no scleral icterus.
Neck: supple.
CV: remains RRR, +S1/S2, no m/r/g.
Resp: remains CTAB, no rales, wheezes, or rhonchi.
Abd: +BS, soft, NT to light palpation, ND
Skin: No rashes.
Neuro: CN 2-12 intact, non-focal.
Psych: Normal mood and affect.
01/04/25 05:01 Feces/Stool Salmonella/Shigella Culture - Final
No Salmonella, Shigella, Aeromonas or Plesiomonas species
isolated.
01/04/25 05:01 Feces/Stool Campylobacter Culture - Final
No Campylobacter species isolated.
01/04/25 05:01 Feces/Stool Shiga Toxin Test - Final
No E. coli Shiga Toxin 1 or 2 detected.
01/03/25 16:21 Blood/Venous Blood Culture - Preliminary
No Growth in 48 hours- Final report to follow
01/03/25 16:25 Blood/Venous Blood Culture - Preliminary
No Growth in 48 hours- Final report to follow
01/03/25 14:13 Urine Urine Culture - Final
Escherichia coli
01/03/25 14:13 Nasal Swab Influenza Types A & B (OPAL) - Final
Negative for Influenza A & B, NAAT
Negative results must be combined with clinical observations
and patient history.
Nucleic Acid Amplification test (NAAT)performed on the
[employer] platform.
CXR: Small left lower lobe infiltrate.
CT A/P (IV only): The colon is collapsed which limits assessment of intestinal wall thickening. There is the suggestion of mild colonic wall thickening involving the ascending colon, transverse colon, and descending colon. Cannot exclude mild
nonspecific colitis. No associated significant pericolonic inflammatory soft tissue thickening. No pneumatosis. There is a small amount of fluid within nondistended loops of small bowel. Small amount of liquid feces in the cecum. No Obstructive
uropathy. Fatty infiltration of liver. Stable hepatic cysts. Stable small pancreatic low-attenuation/cystic structure in the region of the pancreatic body measuring 10 mm. Recommend follow-up in 2 years.
Sepsis (POA) due to symptomatic UTI:
-complicated with clinical acute L pyelonephritis (L CVA TTP)
-immunosuppressed host being on Remicade and methotrexate for RA (holding MTX)
-s/p IVFs
-UCx with pansensitive E coli
-follow BCxs (NGTD)
-has been on Rocephin, transition to Keflex through 01/16/25 as per ID
Other problems:
Small left lower lobe infiltrate: No clinical PNA
RA: on Remicade and MTX (with folic acid), holding MTX with UTI, cont Neurontin
Asthma: Cont Advair/Singulair
Migraines: Maxalt PRN
GERD: cont PPI
Depression: cont Lexapro
HLD: cont Zetia
Obesity due to excess calories
JASIEL, does not use CPAP at home
FULL/Lovenox
Medically cleared for discharge as per discussion with Dr. Arias.
Total time spent on d/c = 32 min. This included today's physical exam, progress note, review of laboratory and diagnostic data, preparation of discharge documents and prescriptions, and discussions about the pt's hospital course and discharge plan
with the patient and other medical historian involved in the patient's care.
Anticipated Discharge: Today
Subjective/Interval History
-
Date of Service: January 06, 2025
No new complaints.
Objective Data
-
Labs:
Laboratory Results
01/06/25
07:16
WBC 5.7
Hgb 11.6 L
Hct 35.5 L
Plt Count 308
Sodium 143
Potassium 3.8
Chloride 109 H
Carbon Dioxide 27
BUN 11
Creatinine 0.6
Glucose 105 H
Calcium 8.7
Vital Signs:
Vital Signs
Temp Pulse Resp BP Pulse Ox
98.0 F 78 18 126/85 95
01/06/25 07:20 01/06/25 07:31 01/06/25 07:31 01/06/25 07:20 01/06/25 09:00
I&O
01/05/25 01/06/25 01/07/25
06:59 06:59 06:59
Intake Total 840 / 840 620 / 620
Balance 840 / 840 620 / 620
--- NOTE | 2025-01-06 12:15 | CM ---
Patient stable for d/c today
Met w/ patient bedside, agreeable to d/c. IMM verbally reviewed, copy given to patient, copy on chart
Spouse will transport
No CM needs identified at this time
Plan: Home, no needs
[2025-01-06 12:55] VITALS: BP 129/73
--- NOTE | 2025-01-06 13:04 | W.DCSUMMARY ---
Discharge Summary
Discharge Data
Date of Admission: 01/03/25
Date of Discharge: 01/06/25
-
Pending Results: No
Hospital Course
Primary diagnoses:
Sepsis due to urinary tract infection/left-sided pyelonephritis
Secondary diagnoses:
Rheumatoid arthritis
Asthma
Migraine headaches
Gastroesophageal flux disease
Depression
Hyperlipidemia
Obesity due to excess calories
Obstructive sleep
Consultants:
Infectious disease
Imaging:
CXR: Small left lower lobe infiltrate.
CT A/P (IV only): The colon is collapsed which limits assessment of intestinal wall thickening. There is the suggestion of mild colonic wall thickening involving the ascending colon, transverse colon, and descending colon. Cannot exclude mild
nonspecific colitis. No associated significant pericolonic inflammatory soft tissue thickening. No pneumatosis. There is a small amount of fluid within nondistended loops of small bowel. Small amount of liquid feces in the cecum. No Obstructive
uropathy. Fatty infiltration of liver. Stable hepatic cysts. Stable small pancreatic low-attenuation/cystic structure in the region of the pancreatic body measuring 10 mm. Recommend follow-up in 2 years.
Hospital course: 69-year-old female who presented with chief complaints of nausea, vomiting, left costovertebral angle tenderness as outlined in the H&P done on admission. Imaging above. The patient's urinalysis was suggestive of urinary tract
infection with pyuria and 1+ leukocyte esterase . The patient was immunosuppressed as she was on Remicade methotrexate rheumatoid arthritis. Her methotrexate was held. Patient was placed on cefepime. Her symptoms improved. She received IV
fluids. Urine culture grew pansensitive E. coli. Blood cultures were no growth at the time of discharge. She was seen in consultation by infectious disease. She had been transitioned to Rocephin and is being discharged on Keflex through 01/16/25
as per ID.
Discharge Plan
-
Patient Disposition: Home (Routine Discharge)
Discharge Diagnosis/Procedures: Sepsis due to urinary tract infection/left-sided pyelonephritis
Condition: Good
Diet: No restrictions
Activity: As tolerated
Driving Restrictions: As prior to admission
Bathing Restrictions: None
Activity Restrictions/Additional Instructions:
You may resume your methotrexate on January 17, 2025.
Referrals:
Dung Garcia, DO [Family Provider] - in less than 1 week
Prescriptions:
New
cephalexin 500 mg capsule
500 mg PO Q6H Qty: 44 0RF
Continued
rabeprazole [AcipHex] 20 MG tablet,delayed release (DR/EC)
20 mg PO BID
therapeutic multivitamin Tablet
1 tab PO DAILY Qty: 0
montelukast 10 MG tablet
10 mg PO DAILY
ezetimibe 10 MG tablet
10 mg PO DAILY
Excedrin Tension Headache 500-65 mg Tablet
2 tab PO DAILYPRN PRN (Reason: migraine)
escitalopram oxalate [Lexapro] 10 mg Tablet
10 mg PO DAILY
folic acid 1 mg Tablet
1 mg PO DAILY
gabapentin 600 mg Tablet
600 mg PO TID
acetaminophen [Tylenol] 325 mg Tablet
650 mg PO Q6HPRN PRN (Reason: mild pain)
rizatriptan [Maxalt] 10 mg Tablet
0 mg PO .COMPLEX
Rx Instructions:
take 1 tab at onset of headache; if no relief may repeat 1 tab after at least 2 hrs; max = 3 tabs/24 hr
fluticasone propion-salmeterol [Wixela Inhub] 500-50 mcg/dose Blister With Device
2 inh INHALATION R BID
ixrfpzvldc-zbyzlsjuijpik-hrgn 50-325-40 mg tablet
1 tab PO Q4HPRN PRN (Reason: migraines)
ascorbic acid (vitamin C) [Vitamin C] 500 mg Tablet
500 mg PO DAILY
infliximab [Remicade] 100 mg Recon Soln
0 mg IV MONTHLY
icosapent ethyl [Vascepa] 1 gram Capsule
2 g PO BID
Nexletol 180 mg Tablet
180 mg PO DAILY
Discontinued
methotrexate sodium 2.5 mg Tablet
20 mg PO MO
rutin 50 mg Tablet
50 mg PO DAILY
turmeric 400 mg Capsule
400 mg PO DAILY
elderberry fruit 350 mg Capsule
1,250 mg PO BID
Discharge Orders:
Discharge Patient (As Directed); Ordered 01/06/25
Ordered By: Hudson Benito
Discharge Date and Time
Print Language: [id number]
== END 2025-01-06 13:39 | disposition home or self-care (01) | DRG 872 ==
LOC: 4 WEST ACU 23:08
PROVIDERS: Emergency Medicine; ADMITTING PHYSICIAN Internal Medicine; ATTENDING PHYSICIAN Internal Medicine; EMERGENCY PHYSICIAN Emergency Medicine; FAMILY PHYSICIAN Family Medicine; OTHER PHYSICIAN Internal Medicine Infectious Disease
DX: A41.9 Sepsis, unspecified organism (principal); D84.821 Immunodeficiency due to drugs; N10 Acute pyelonephritis; Z87.891 Personal history of nicotine dependence; Z11.52 Encounter for screening for COVID-19; Z79.620 Long term (current) use of immunosuppressive biologic; M06.9 Rheumatoid arthritis, unspecified; Z79.631 Long term (current) use of antimetabolite agent; K21.9 Gastro-esophageal reflux disease without esophagitis; E78.00 Pure hypercholesterolemia, unspecified; F32.A Depression, unspecified; E66.09 Other obesity due to excess calories; Z68.35 Body mass index [BMI] 35.0-35.9, adult; J45.909 Unspecified asthma, uncomplicated; G43.909 Migraine, unspecified, not intractable, without status migrainosus
CPT/HCPCS: 71045; 74177; 80048; 80053; 81003; 81015; 83605; 83690; 85025; 85027; 87040; 87045; 87046; 87086; 87088; 87186; 87427; 87502; 87811; 93005; 94640; Q9967

== ENCOUNTER 2025-04-04 13:03 | Emergency (ER) | payer MEDICARE, BC, SELFPAY ==
[2025-04-04 13:13] VITALS: BP 133/67
[2025-04-04 13:47] LABS: Hematocrit 46.8 % (37.0-47.0); Hemoglobin 15.9 g/dL (12.0-16.0); Mean Corp Hgb Conc. 34.0 g/dL (33.0-37.0); Mean Corpuscular Volume 88.6 fL (81.0-99.0); Nucleated Red Blood Cells % 0 %; Red Cell Dist. Width 14.1 % (11.5-14.5)
[2025-04-04 14:03] LABS: ALT (SGPT) 52 U/L (0-35); AST (SGOT) 56 U/L (14-36); Albumin 5.5 g/dl (3.5-5.0); Alkaline Phosphatase 90 U/L (38-126); Blood Urea Nitrogen 21 mg/dl (7-17); Calcium 10.3 mg/dl (8.4-10.2); Carbon Dioxide 13 mmol/L (22-30); Chloride 107 mmol/L (98-107); Glucose 65 mg/dl (70-99); Lipase 234 U/L (23-300); Potassium 4.2 mmol/L (3.5-5.1); Sodium 140 mmol/L (135-145); Total Protein 8.6 g/dl (6.3-8.2); eGFR > 60.00
[2025-04-04 14:16] LABS: Platelet Count 317 10^3/uL (130-400)
[2025-04-04 19:41] VITALS: BMI 34.8
[2025-04-04 19:44] VITALS: BP 83/71
[2025-04-04 20:07] VITALS: BP 105/93
[2025-04-04] MEDS: CARAFATE SUSPENSION 1 GM PO ×2 (20:28→23:58)
[2025-04-04] MEDS: D5/0.9% SODIUM CHLORIDE 1000 IV ×2 (20:28→23:39)
[2025-04-04] MEDS: ZOFRAN 4 MG IV (20:28)
[2025-04-04 21:00] VITALS: BP 122/76
[2025-04-04 21:26] LABS: Urine Character Clear (Clear)
[2025-04-04 21:36] LABS: Urine Squamous Cell 0-2 /LPF (Few)
[2025-04-04 21:37] LABS: Urine Red Blood Cell 0-2 /HPF (0-2)
[2025-04-04 22:00] VITALS: BP 129/60
[2025-04-04 23:12] LABS: Glucose - Point of Care 263 mg/dl (70-99)
--- NOTE | 2025-04-04 23:19 | ED.GENMED ---
History of Present Illness
General
Chief Complaint: Abdominal Symptoms
Source: patient
Time Seen by Provider: 04/04/25 19:20
History of Present Illness
History of Present Illness:
Note:
CHIEF COMPLAINT(S)
Inability to keep food down and burning sensation in the chest after eating.
HISTORY OF PRESENT ILLNESS
The patient is a 69-year-old female with a significant past medical history of rheumatoid arthritis and a hiatal hernia. She presents with an acute onset of gastrointestinal symptoms, reporting an inability to retain food and a burning sensation in
the chest that began after consuming food, including peas and carrots, about four days ago. The food initially felt stuck, but eventually passed down. The patient describes the burning as localized in the chest and abdomen, with no associated fever.
She reports excessive vomiting that has prevented her from taking regular medications, resulting in a 10-pound weight loss and severe dehydration, as evidenced by reduced urination. The patient notes that even water intake exacerbates the burning
sensation.
The patients symptoms initially led her to a Gastrointestinal specialist who noted rebound tenderness on palpation and recommended emergent imaging of the abdomen, which has not yet been completed. She has a scheduled rheumatology appointment with
blood work taken the same morning as this visit.
PAST MEDICAL AND SURGICAL HISTORY
The patient has rheumatoid arthritis. She denies any previous abdominal surgeries and retains her appendix, uterus, and gallbladder.
CHRONIC MEDICAL CONDITIONS SIGNIFICANTLY AFFECTING CARE
The patient has a history of rheumatoid arthritis and a hiatal hernia.
ALLERGIES
The patient reports multiple drug allergies, including aspirin, resulting in bleeding; Nexium, causing hives; and codeine.
MEDICATIONS
The patient is unable to take her regular medications due to vomiting and burning sensation.
PHYSICAL EXAM
General: The patient is alert but appears in distress due to abdominal discomfort.
Skin: Warm, dry.
Head: Normocephalic, atraumatic.
Neck: Supple, trachea midline.
Eye, Ears, Nose, Mouth, and Throat: Oral mucosa moist.
Cardiovascular: Normal peripheral perfusion, No edema.
Respiratory: Respirations are non-labored.
Gastrointestinal: Tenderness most pronounced on the right side of the abdomen. Diminished bowel sounds.
Back: Normal range of motion, Normal alignment.
Musculoskeletal: Normal range of motion, normal strength.
Neurological: Alert and oriented to person, place, time, and situation, No focal neurological deficit observed.
Psychiatric: Cooperative, appropriate mood & affect.
PROBLEM LIST
Acute Problems:
- Inability to keep food down
- Burning sensation in chest
- Dehydration
- Rebound tenderness in the abdomen
- Nausea
Chronic Problems:
- Rheumatoid arthritis
- Hiatal hernia
PLAN
- Administer intravenous fluids to address dehydration.
- Administer nausea medication to alleviate symptoms.
- Trial carafate (sucralfate) to coat the esophagus and potentially relieve burning sensation.
- Conduct abdominal imaging to determine the underlying cause of symptoms.
- Consider endoscopy if further investigation is warranted based on imaging results to rule out structural or erosive causes within the esophagus.
DIFFERENTIAL DIAGNOSIS
The Differential Diagnosis includes, in no particular order and is not limited to:
- Hiatal hernia complication
- Gastroesophageal reflux disease
- Esophageal stricture or obstruction
- Peptic ulcer disease
- Gastritis
- Esophageal erosion or ulcer
- Esophagitis
- Barretts esophagus
- Achalasia
- Peptic stricture
Disposition:
SUMMARY OF ENCOUNTER
The patient, a 69-year-old female, presented with burning pain in her upper abdomen that began after consuming certain foods. Her symptoms included being unable to eat effectively. Initial labs showed a normal complete blood count (CBC) and a normal
white cell count. However, chemistry tests revealed a non-gap acidosis, which is suspected to be due to starvation ketosis, alongside low blood sugar levels, attributed to inadequate food intake. A CT scan of the abdomen was unremarkable, and her
urinalysis revealed 3+ ketones. The patient was treated with intravenous fluids containing glucose, leading to an improvement in her symptoms. Her blood glucose levels improved, and she responded positively to sucralfate; although, some symptoms
returned slightly. Due to her drug allergies, she is sensitive to both proton pump inhibitors and famotidine.
PLAN
The patient will continue with sucralfate four times a day to manage her symptoms. She is referred for an outpatient gastroenterology follow-up, potentially to include an endoscopy to further investigate the gastritis/esophagitis.
INDEPENDENT REVIEW OF LABS AND INTERPRETATION OF TESTS
My independent review of CBC and chemistry tests indicates normal blood counts and the presence of a non-gap acidosis, likely due to starvation ketosis, along with low blood sugar. Urinalysis reveals 3+ ketones. My independent interpretation of the
CT scan is unremarkable with no evidence of acute issues.
FOLLOW-UP INSTRUCTIONS
The patient is advised to follow up with gastroenterology as an outpatient, where an upper endoscopy may be considered.
MEDICATION RECONCILIATION
A prescription for sucralfate is provided for use four times a day.
MEDICAL DECISION MAKING
1. Number and Complexity of Problems Addressed: Chronic conditions affecting care include rheumatoid arthritis and hiatal hernia. Differential diagnoses considered are hiatal hernia complication, gastroesophageal reflux disease, esophageal stricture
or obstruction, peptic ulcer disease, gastritis, esophageal erosion or ulcer, esophagitis, Ni�s esophagus, achalasia, and peptic stricture.
2. Data: Amount and/or Complexity of Data Reviewed and Analyzed:
Category 1: Review of laboratory tests including CBC, electrolytes, and urinalysis. My independent interpretation of abdominal CT scan.
3. Risk: Prescription drug management involved with sucralfate. The decision regarding diagnostic tests considered possible endoscopy based on the patients complex presentation and comorbidities.
DIAGNOSIS
Gastritis (K29.70)
Esophagitis (K20.9)
Past History
Past History
ED Past Medical History: Asthma, Hypercholesterolemia and Other (RA, Migraines, Sleep apnea)
ED Past Surgical History: None, Gynecological (right breast lumpectomy, D&C), Orthopedic (Right rotator cuff, Bilateral bunionectomy, Thoracic Laminectomy, Spinal stimulator) and Urological (Urtheral stents)
Social History
Tobacco: Former smoker
Alcohol: Occasional
Personal:
Living: with family
Employment: Retired
Phy Exam
Physical Exam
Physical Exam:
.
Course
Orders/Labs/Results
Orders:
Orders
04/04/25 13:30
Complete Blood Count/With Diff Urgent
Comprehensive Metabolic Panel Urgent
Lipase Urgent
04/04/25 19:29
Ondansetron Injectable [Zofran] 4 mg IV NOW STA
Sucralfate Suspension [Carafate Suspension] 1 gm PO NOW STA
04/04/25 19:33
CT Abd/Pel (IV only)-DH only Urgent
Comment:
Reason For Exam: R sided abd pain, intractable vomiting
04/04/25 20:00
Dextrose 5%/0.9%Sodchl 1000 ml [D5/0.9% Sodium Chloride] 1,000 ml IV 500 mls/hr
04/04/25 20:56
Urinalysis Reflex To Culture Urgent
Date Specimen was Collected: 04/04/25
Time Specimen was Collected: 20:55
Urine Microscopic Reflex Cult Urgent
Urine Culture Urgent
PATRICIA Source: U
Specimen Description:
Date Specimen was Collected: 04/04/25
Time Specimen was Collected: 20:55
04/04/25 23:52
Sucralfate Suspension [Carafate Suspension] 1 gm PO NOW STA
Abnormal Lab Results
04/04/25 04/04/25 04/04/25
13:30 20:56 23:09
Absolute Monos (auto) 0.7 H 10^3/uL
(0.1-0.6)
Monocytes % 10.0 H %
(1.7-9.3)
Carbon Dioxide 13 L* mmol/L
(22-30)
BUN 21 H mg/dl
(7-17)
Glucose 65 L mg/dl
(70-99)
Calcium 10.3 H mg/dl
(8.4-10.2)
AST 56 H U/L
(14-36)
ALT 52 H U/L
(0-35)
Total Protein 8.6 H g/dl
(6.3-8.2)
Albumin 5.5 H g/dl
(3.5-5.0)
Urine Ketones 3+ A
(Negative)
Urine Bacteria (Reflex) Moderate A
(Negative)
Urine Albumin (Reflex) 2+ A
(Neg - Trace)
POC Glucose 263 H mg/dl
(70-99)
04/04/25 13:30
04/04/25 13:30
Vital Signs
Initial and Last Documented VS:
Initial Vital Signs
Temp Pulse Resp BP Pulse Ox
97.8 F 97 18 133/67 97
04/04/25 13:13 04/04/25 13:13 04/04/25 13:13 04/04/25 13:13 04/04/25 13:13
Last Documented Vital Signs
Temp Pulse Resp BP Pulse Ox
97.8 F 94 24 111/79 96
04/04/25 13:13 04/04/25 23:30 04/04/25 23:30 04/04/25 23:20 04/04/25 23:30
*Pulse Oximetry
SaO2: 94
Oxygen Mode of Delivery: Room air
Patient hypoxic: no
*Critical Care Note
Total Time (30-74mins, 75-104mins- exclusive of procedures): Not Applicable
ED Attending Note
-
Portions of this chart may have been created with voice recognition software.� Occasional wrong word or��sound alike� substitutions may have occurred due to the inherent limitations of voice recognition software.
Discharge Plan
Departure
Patient Disposition: Home (Routine Discharge)
Date of Disposition: 04/04/25
Time of Disposition: 23:29
Patient with high blood pressure during this ER visit?: No
Discharge Problem:
Abdominal pain, Gastritis
Instructions: Gastritis, Abdominal Pain
Prescriptions:
New
sucralfate [Carafate] 100 mg/mL suspension
10 ml PO QID Qty: 400 0RF
No Action
rabeprazole [AcipHex] 20 MG tablet,delayed release (DR/EC)
20 mg PO BID
therapeutic multivitamin Tablet
1 tab PO DAILY Qty: 0
montelukast 10 MG tablet
10 mg PO QPM
ezetimibe 10 MG tablet
10 mg PO HS
Excedrin Tension Headache 500-65 mg Tablet
2 tab PO DAILYPRN PRN (Reason: migraine)
escitalopram oxalate [Lexapro] 10 mg Tablet
10 mg PO DAILY
folic acid 1 mg Tablet
1 mg PO DAILY
gabapentin 600 mg Tablet
600 mg PO DAILY
fluticasone propion-salmeterol [Wixela Inhub] 500-50 mcg/dose Blister With Device
2 inh INHALATION R BID
ulfmpxmguu-mlgojbxukbjpk-ydoy 50-325-40 mg tablet
1 tab PO Q4HPRN PRN (Reason: migraines)
ascorbic acid (vitamin C) [Vitamin C] 500 mg Tablet
500 mg PO DAILY
infliximab [Remicade] 100 mg Recon Soln
100 mg IV MONTHLY
icosapent ethyl [Vascepa] 1 gram Capsule
2 g PO BID
Nexletol 180 mg Tablet
360 mg PO DAILY
Azelastine-Mometasone Capsules
1 cap irrigation DAILY
gabapentin 600 mg Tablet
1,200 mg PO HS
cetirizine [Aller-Jai] 10 mg Tablet
10 mg PO DAILY
tizanidine 4 mg Tablet
4 mg PO BIDPRN PRN (Reason: muscle spasms)
prednisone 5 mg Tablet
7.5 mg PO DAILY
methotrexate sodium 2.5 mg Tablet
20 mg PO MO
rutin 500 mg Tablet
500 mg PO BID
magnesium oxide 250 mg magnesium Tablet
250 mg PO DAILY
Botox 200 unit Recon Soln
10 unit IM Q3M
flaxseed 1,000 mg Capsule
1,200 mg PO DAILY
phytosterol 450 mg Tablet
900 mg PO DAILY
turmeric 400 mg Capsule
400 mg PO BID
iVizia (PF) 0.5 % Dropperette,Gel
1 drp ophthalmic (eye) QID
zinc glycinate 20 mg Capsule
50 mg PO DAILY
Referrals:
Dung Garcia, DO [Family Provider]
Activity Restrictions/Additional Instructions:
Please see GI in follow-up in the next 2 weeks. I would suggest an upper endoscopy for further evaluation. Return Corrine for intractable vomiting, inability eat or drink, bloody vomitus, blood in stool, fevers or any other concerns. Please see
your doctor in the next 1 week for follow-up and reevaluation.
Interventions
Interventions:
*Risk Screen - Suicide Last Done: 04/04/25 13:13
*General Assessment Last Done: 04/04/25 13:13
*Neglect/Abuse Screening Last Done: 04/04/25 13:13
*ED- Fall Risk Assessment Last Done: 04/04/25 20:10
*ED COVID-19 Vaccine History Last Done: 04/04/25 20:10
*Nursing Disposition Last Done: 04/05/25 00:18
SD-Lfydkz-Opozooowhx Assessment Last Done: 04/04/25 20:10
Discharge Date and Time
Discharge Date/Time: 04/05/25 00:18
Print Language: TELUGU
[2025-04-04 23:20] VITALS: BP 111/79
== END 2025-04-05 00:18 | disposition home or self-care (01) ==
LOC: EMR 13:03
PROVIDERS: Student in an Organized Health Care Education/Training Program; EMERGENCY PHYSICIAN Emergency Medicine; FAMILY PHYSICIAN Family Medicine
DX: K29.70 Gastritis, unspecified, without bleeding (principal); M06.9 Rheumatoid arthritis, unspecified; K44.9 Diaphragmatic hernia without obstruction or gangrene; E78.00 Pure hypercholesterolemia, unspecified; J45.909 Unspecified asthma, uncomplicated; E86.0 Dehydration; G47.30 Sleep apnea, unspecified; Z79.899 Other long term (current) drug therapy; Z87.891 Personal history of nicotine dependence; Z88.5 Allergy status to narcotic agent; Z88.6 Allergy status to analgesic agent
CPT/HCPCS: 99284; 96374; 96375; 96376; 96361; 74177; 80053; 81003; 81015; 82962; 83690; 85025; 87086; Q9967

== ENCOUNTER 2025-04-21 06:25 | Day surgery (SDC) | payer MEDICARE, BC, SELFPAY | END 2025-04-21 14:17 | disposition home or self-care (01) | LOC: GI 06:25 | PROVIDERS: ATTENDING PHYSICIAN Internal Medicine Gastroenterology | DX: R12 Heartburn (principal); R11.0 Nausea; K29.70 Gastritis, unspecified, without bleeding; K31.7 Polyp of stomach and duodenum; K22.89 Other specified disease of esophagus | CPT/HCPCS: 43239; 88305; 88342 ==

== ENCOUNTER → 2025-05-26 07:04 | Outpatient (REF) | payer MEDICARE, BC, SELFPAY | LOC: RAD 07:04 | PROVIDERS: ATTENDING PHYSICIAN Internal Medicine Gastroenterology; FAMILY PHYSICIAN Family Medicine | DX: R11.0 Nausea (principal) | CPT/HCPCS: 76700; 78264; A9541 ==

== ENCOUNTER 2025-06-05 07:14 | Emergency (ER) | payer MEDICARE, BC, SELFPAY ==
[2025-06-05 07:15] VITALS: BP 128/88
[2025-06-05] MEDS: NSS 1000 IV (07:37)
[2025-06-05] MEDS: ZOFRAN ODT (ORALLY DISINTEGRATING) 4 MG PO (07:38)
[2025-06-05] MEDS: TYLENOL 1000 MG PO (07:38)
[2025-06-05 07:52] LABS: Hematocrit 41.3 % (37.0-47.0); Hemoglobin 13.3 g/dL (12.0-16.0); Mean Corp Hgb Conc. 32.2 g/dL (33.0-37.0); Mean Corpuscular Volume 96.7 fL (81.0-99.0); Nucleated Red Blood Cells % 0 %; Platelet Count 271 10^3/uL (130-400); Red Cell Dist. Width 15.3 % (11.5-14.5)
[2025-06-05 08:07] LABS: ALT (SGPT) 70 U/L (0-35); AST (SGOT) 60 U/L (14-36); Albumin 4.5 g/dl (3.5-5.0); Alkaline Phosphatase 91 U/L (38-126); Blood Urea Nitrogen 13 mg/dl (7-17); Calcium 8.8 mg/dl (8.4-10.2); Carbon Dioxide 25 mmol/L (22-30); Chloride 107 mmol/L (98-107); Glucose 108 mg/dl (70-99); Potassium 4.2 mmol/L (3.5-5.1); Sodium 139 mmol/L (135-145); Total Protein 6.9 g/dl (6.3-8.2); eGFR > 60.00
[2025-06-05 08:13] LABS: COVID-19 Antigen Negative (Negative)
[2025-06-05 08:15] LABS: Troponin I < 0.012 ng/ml
--- NOTE | 2025-06-05 09:35 | ED.GENMED ---
History of Present Illness
General
Chief Complaint: Cold/Flu/URI Symptoms
Source: patient
Time Seen by Provider: 06/05/25 09:21
History of Present Illness
History of Present Illness:
69-year-old female with past medical history of migraines, asthma, hyperlipidemia, GERD presenting to the emergency department for evaluation of flulike symptoms that been ongoing for the last 36 hours noting that she was recently in [place] on a
family trip and upon returning home started to feel generalized malaise, yesterday was out with family when the symptoms seem to worsen and overnight started developing a cough, body aches, chills, tactile fever with the cough worsening this morning
which is why she came to the ER for evaluation. Patient notes she did not use her inhaler yet this morning. No known sick contacts or recent antibiotics. No other concerns presently
Past History
Past History
ED Past Medical History: Asthma, Hypercholesterolemia and Other (RA, Migraines, Sleep apnea)
ED Past Surgical History: None, Gynecological (right breast lumpectomy, D&C), Orthopedic (Right rotator cuff, Bilateral bunionectomy, Thoracic Laminectomy, Spinal stimulator) and Urological (Urtheral stents)
Social History
Tobacco: Former smoker
Alcohol: Occasional
Drug: None
Personal:
Living: with family
Employment: Retired
Review of Systems
Review of Systems
All Other Systems: ROS reviewed and negative except as documented in HPI and ROS
Phy Exam
Physical Exam
Physical Exam:
GENERAL: Alert , in no apparent distress, Ill-appearing but nontoxic
HEAD: Normocephalic atraumatic
EYE: conjunctiva clear
NECK: Supple, no significant adenopathy.
ENT: mmm.
CARDIAC: Regular rate and rhythm
LUNGS: Scattered wheezing noted, coughing throughout the exam, speaking full sentences and in no acute respiratory distress
NEUROLOGICAL: Alert and oriented
SKIN: Warm and dry, skin intact.
MUSCULOSKELETAL: well perfused.
PSYCH: Normal and appropriate interaction.
Scores
Heart Failure Risk
Heart Failure Risk Score: Not Applicable
Heart Score for Chest Pain Patients
STEMI patient?: Not applicable
Withdrawal Assessment of Alcohol
Withdrawal Assessment Completed?: Not applicable
Course
Orders/Labs/Results
Orders:
Orders
06/05/25 07:19
Electrocardiogram (*1) Urgent
Reason for Study: Chest Pain
06/05/25 07:20
EKG- Treatment ONCE
06/05/25 07:35
0.9% Sodium Chloride 1000 ml [Nss] 1,000 ml IV BOLUS
Ondansetron Orally Disint [Zofran Odt (Orally Disintegrating)] 4 mg PO NOW STA
06/05/25 07:36
Acetaminophen [Tylenol] 1,000 mg PO NOW STA
06/05/25 07:42
COVID-19 Antigen Urgent
Source: Nasal Swab
Complete Blood Count/With Diff Urgent
Comprehensive Metabolic Panel Urgent
Troponin I Urgent
Influenza A+B Rapid Molecular Urgent
PATRICIA Source: Nasal Swab
Specimen Description:
06/05/25 08:15
Chest [CR Chest - 2 Views ] Urgent
Comment:
Reason For Exam: fever
06/05/25 09:50
Albuterol Nebs [Ventolin Nebules] 2.5 mg INH R NOW STA
MethylPREDNISolone PF [Solu-Medrol Pf] 40 mg IV NOW STA
Abnormal Lab Results
06/05/25
07:42
WBC 11.3 H 10^3/uL
(4.8-10.8)
MCH 31.1 H pg
(27.0-31.0)
MCHC 32.2 L g/dL
(33.0-37.0)
RDW 15.3 H %
(11.5-14.5)
Absolute Neuts (auto) 8.8 H 10^3/uL
(1.4-6.5)
Absolute Monos (auto) 1.1 H 10^3/uL
(0.1-0.6)
Neutrophils % 77.4 H %
(42.2-75.2)
Lymphocytes % 10.6 L %
(20.5-51.1)
Monocytes % 9.8 H %
(1.7-9.3)
Glucose 108 H mg/dl
(70-99)
AST 60 H U/L
(14-36)
ALT 70 H U/L
(0-35)
06/05/25 07:42
06/05/25 07:42
Vital Signs
Initial and Last Documented VS:
Initial Vital Signs
Temp Pulse Resp BP Pulse Ox
98.7 F 104 20 128/88 95
06/05/25 07:15 06/05/25 07:15 06/05/25 07:15 06/05/25 07:15 06/05/25 07:15
Last Documented Vital Signs
Temp Pulse Resp BP Pulse Ox
98.3 F 89 22 131/78 98
06/05/25 10:42 06/05/25 11:25 06/05/25 11:25 06/05/25 11:25 06/05/25 11:25
MDM/Problems Addressed
Differential Diagnosis Includes:
COVID/Flu
Viral Syndrome
Pneumonia
Bronchitis
Sinusitis
Otitis media
PE
MDM/Problems Addressed:
69-year-old female presenting the ER for evaluation of 36 hours of flulike symptoms, no known sick contacts but patient did recently travel to [place]. Labs and chest x-ray ordered here show a mild leukocytosis, patient has a known chronic mild
transaminitis, chest x-ray shows suspected left lower lung infiltrate suspicious for pneumonia. Will treat likely mild asthma exacerbation secondary to the pneumonia with albuterol neb and Solu-Medrol now. Will write prescriptions for Omnicef and
Zithromax for patient to be discharged home on. Outpatient follow-up with primary care provider.
Chronic conditions affecting care: Asthma
Acute Exacerbation and/or Progression of Chronic Illness: Asthma
*Radiology
Radiology exam reviewed: preliminary read by ED provider (Left lower lung pneumonia)
*Pulse Oximetry
SaO2: 95
Oxygen Mode of Delivery: Room air
Patient hypoxic: no
*EKG
Heart Rate: 100
Rate: tachycardiac
Rhythm: sinus
Ischemia: no ischemia
*Cabana Attendant Interpretation
Rate: normal
Heart Rate: 85
Rhythm: sinus
*Critical Care Note
Total Time (30-74mins, 75-104mins- exclusive of procedures): Not Applicable
Patient Management
Escalation/DeEscalation of care consider admission/obs:
Following treatment patient reported feeling better although still with achiness. Patient has a left lower lobe pneumonia on chest x-ray. Antibiotics ordered for home treatment. I also ordered a Medrol dose pack given patient's history of asthma.
Stable for discharge home and aware of return precautions
ED Attending Note
-
Portions of this chart may have been created with voice recognition software.� Occasional wrong word or��sound alike� substitutions may have occurred due to the inherent limitations of voice recognition software.
Discharge Plan
Departure
Patient Disposition: Home (Routine Discharge)
Date of Disposition: 06/05/25
Time of Disposition: 11:12
Patient with high blood pressure during this ER visit?: No
Discharge Problem:
Pneumonia
Instructions: Pneumonia in adults (DC)
Prescriptions:
New
cefdinir 300 mg capsule
300 mg PO BID 7 Days Qty: 14 0RF
azithromycin [Zithromax Z-Sunny] 250 mg tablet
See Rx Instructions .ROUTE .COMPLEX Qty: 6 0RF
Rx Instructions:
Take 2 tabs day 1, take one tab remaining days
methylprednisolone [Medrol (Sunny)] 4 mg tablets,dose pack
4 mg PO DIRECTED Qty: 21 0RF
No Action
rabeprazole [AcipHex] 20 MG tablet,delayed release (DR/EC)
20 mg PO BID
therapeutic multivitamin Tablet
1 tab PO DAILY Qty: 0
montelukast 10 MG tablet
10 mg PO QPM
ezetimibe 10 MG tablet
10 mg PO HS
Excedrin Tension Headache 500-65 mg Tablet
2 tab PO DAILYPRN PRN (Reason: migraine)
escitalopram oxalate [Lexapro] 10 mg Tablet
10 mg PO DAILY
folic acid 1 mg Tablet
1 mg PO DAILY
gabapentin 600 mg Tablet
600 mg PO DAILY
fluticasone propion-salmeterol [Wixela Inhub] 500-50 mcg/dose Blister With Device
2 inh INHALATION R BID
syqaodehho-fhyacyeagvhyk-safw 50-325-40 mg tablet
1 tab PO Q4HPRN PRN (Reason: migraines)
ascorbic acid (vitamin C) [Vitamin C] 500 mg Tablet
500 mg PO DAILY
infliximab [Remicade] 100 mg Recon Soln
100 mg IV MONTHLY
icosapent ethyl [Vascepa] 1 gram Capsule
2 g PO BID
Nexletol 180 mg Tablet
360 mg PO DAILY
Azelastine-Mometasone Capsules
1 cap irrigation DAILY
gabapentin 600 mg Tablet
1,200 mg PO HS
cetirizine [Aller-Jai] 10 mg Tablet
10 mg PO DAILY
tizanidine 4 mg Tablet
4 mg PO BIDPRN PRN (Reason: muscle spasms)
prednisone 5 mg Tablet
7.5 mg PO DAILY
methotrexate sodium 2.5 mg Tablet
20 mg PO MO
rutin 500 mg Tablet
500 mg PO BID
magnesium oxide 250 mg magnesium Tablet
250 mg PO DAILY
Botox 200 unit Recon Soln
10 unit IM Q3M
flaxseed 1,000 mg Capsule
1,200 mg PO DAILY
phytosterol 450 mg Tablet
900 mg PO DAILY
turmeric 400 mg Capsule
400 mg PO BID
iVizia (PF) 0.5 % Dropperette,Gel
1 drp ophthalmic (eye) QID
zinc glycinate 20 mg Capsule
50 mg PO DAILY
sucralfate [Carafate] 100 mg/mL suspension
10 ml PO QID Qty: 400 0RF
Interventions
Interventions:
*Risk Screen - Suicide Last Done: 06/05/25 07:19
*General Assessment Last Done: 06/05/25 07:15
*Neglect/Abuse Screening Last Done: 06/05/25 11:25
*ED- Fall Risk Assessment Last Done: 06/05/25 11:25
*ED COVID-19 Vaccine History Last Done: 06/05/25 11:25
*ED Influenza Vaccine History Last Done: 06/05/25 11:25
*Nursing Disposition Last Done: 06/05/25 12:11
ED- Pulmonary Assessment Last Done: 06/05/25 11:25
Discharge Date and Time
Discharge Date/Time: 06/05/25 12:11
Print Language: LITHUANIAN
[2025-06-05] MEDS: VENTOLIN NEBULES 2.5 MG INH (10:03)
[2025-06-05] MEDS: SOLU-MEDROL PF 40 MG IV (10:04)
[2025-06-05 11:25] VITALS: BP 131/78
== END 2025-06-05 12:11 | disposition home or self-care (01) ==
LOC: EMR 07:14
PROVIDERS: EMERGENCY PHYSICIAN Student in an Organized Health Care Education/Training Program; FAMILY PHYSICIAN Family Medicine
DX: J18.9 Pneumonia, unspecified organism (principal); J45.909 Unspecified asthma, uncomplicated; E78.00 Pure hypercholesterolemia, unspecified; G47.30 Sleep apnea, unspecified; Z87.891 Personal history of nicotine dependence; Z11.52 Encounter for screening for COVID-19
CPT/HCPCS: 94640; 96374; 96361; 99285; 71046; 80053; 84484; 85025; 87502; 87811; 93005